=== PATIENT | female | born 2000 | race African-American/Black ===

== ENCOUNTER 2019-11-13 06:44 | Inpatient (IN) ==
[2019-11-13] MEDS ORDERED: ONDANSETRON 4 MG/2 ML VIAL IV PRN (07:34)
[2019-11-13] MEDS ORDERED: BUTORPHANOL 2 MG/ML VIAL IV PRN (07:34)
[2019-11-13] MEDS ORDERED: MEPERIDINE 50 MG/1 ML VIAL IV PRN (07:34)
[2019-11-13 07:56] LABS: Basophils % 0.3 % (0.0-0.8); Eosinophils # 0.1 10*3/uL (0.0-0.87); Eosinophils % 0.9 % (0.00-10.9); Hemoglobin 13.2 GM/DL (12.0-16.0); Immature Granulocytes % 0.9 %; Immature Granulocytes Absolute 0.07 #; Lymphocytes # 2.2 10*3/uL (1.4-4.0); Lymphocytes % 28.7 % (21.3-54.2); Mean Corpuscular Volume 86.8 FL (87-102); Mean Platelet Volume 12.6 FL (9.6-12.0); Monocytes % 11.4 % (1.7-12.7); Neutrophils % 57.8 % (38.7-73.9); Platelet Count 148 T/CUMM (130-400); Red Blood Count 4.61 MC/CUMM (3.8-5.5); Red Cell Distribution Width 14.6 % (9.3-17.3); White Blood Count 7.6 T/CUMM (4-12)
[2019-11-13] MEDS: LACTATED RINGERS 1,000 ML IV SCH ×2 (08:04→09:38)
[2019-11-13] MEDS: OXYTOCIN/LR 20 UNIT/1,000 ML BAG IV SCH ×2 (08:05→14:17)
[2019-11-13 08:17] LABS: Alanine Aminotransferase 14 U/L (13-56); Albumin 3.1 G/DL (3.4-5.0); Alkaline Phosphatase 204 U/L (45-117); Aspartate Amino Transferase 18 U/L (0-37); Bilirubin,Total < 0.39 MG/DL (0.2-1.0); Blood Urea Nitrogen 8 MG/DL (7-18); Calcium 10.2 MG/DL (8.5-10.1); Estimated Glom Filtration Rate 189 ML/MIN; Glucose 88 MG/DL (74-106); Osmolality,Calculated 264.2 MOS/KG (273-304); Total Protein 7.7 G/DL (6.4-8.3)
[2019-11-13] MEDS ORDERED: NALOXONE 0.4 MG/ML VIAL IV PRN (08:55)
[2019-11-13] MEDS ORDERED: CITRIC ACID/SODIUM CITRATE 30 ML UDCUP PO ONE (08:55)
[2019-11-13] MEDS ORDERED: ONDANSETRON 4 MG/2 ML VIAL IV ONE (08:55)
[2019-11-13] MEDS ORDERED: diphenhydrAMINE 50 MG/1 ML VIAL IV PRN ×2 (08:55)
[2019-11-13] MEDS ORDERED: LACTATED RINGERS 1,000 ML IV ONE (08:55)
[2019-11-13] MEDS ORDERED: hydrOXYzine HCL 25 MG/1 ML VIAL IM PRN (08:55)
[2019-11-13] MEDS ORDERED: FAMOTIDINE 20 MG/2 ML VIAL IV ONE (08:55)
[2019-11-13] MEDS ORDERED: ePHEDrine 50 MG/ML AMP IV PRN (08:55)
[2019-11-13] MEDS ORDERED: PROMETHAZINE 25 MG/1 ML VIAL IM ONE (08:55)
[2019-11-13] MEDS ORDERED: fentaNYL 2 MCG/ROPIV 0.2% EPID 100 ML EPIDURAL SCH (09:00)
[2019-11-13] MEDS ORDERED: fentaNYL 100 MCG/2 ML VIAL ONE (10:56)
[2019-11-13] MEDS ORDERED: ROPIVACAINE 0.5% 30 ML VIAL ONE (10:56)
[2019-11-13 11:25] LABS: Apearance,Urine CLEAR (Clear); Bilirubin,Urine Negative (Negative); Blood, Urine Negative (Negative); Glucose,Urine (UA) Negative (Negative); Ketones,Urine 5 mg/dL (Negative); Mucus,Urine Occasional /LPF (Occasional); Nitrite,Urine Negative (Negative); Protein,Urine Negative; RBC,Urine <1 /HPF (0-4); Urine Color Yellow (Yellow); Urine Specific Gravity 1.012 (1.001-1.035); Urine Urobilinogen < 2.0 EU/DL (0.2-1.0)
[2019-11-13] MEDS ORDERED: TRANEXAMIC ACID 1,000 MG/10 ML VIAL ONE (12:13)
[2019-11-13] MEDS ORDERED: OXYTOCIN/LR 20 UNIT/1,000 ML BAG IV ONE ×2 (12:13→14:40)
[2019-11-13] MEDS ORDERED: miSOPROStoL 200 MCG TABLET ONE (12:13)
[2019-11-13] MEDS ORDERED: METHYLERGONOVINE 0.2 MG/1 ML AMP ONE (12:13)
[2019-11-13] MEDS ORDERED: CARBOPROST TROMETHAMINE 250 MCG/ML AMP IM ONE (12:14)
[2019-11-13] MEDS ORDERED: oxyCODONE/ACETAMINOPHEN 5-325 MG TABLET PO PRN (14:40)
[2019-11-13] MEDS ORDERED: BISACODYL 10 MG SUPP RECTAL PRN (14:40)
[2019-11-13] MEDS ORDERED: HYDROCORTISONE 2.5% RECTAL CREAM 30 GM TUBE TOP PRN (14:40)
[2019-11-13] MEDS ORDERED: BENZOCAINE 20%/MENTHOL 0.5% SPRAY 56 GM CAN TOP PRN (14:40)
[2019-11-13] MEDS ORDERED: MEASLES/MUMPS/RUBELLA VACCINE 0.5 ML VIAL SUBCUT ONE (14:40)
[2019-11-13] MEDS ORDERED: RHO(D) IMMUNE GLOBULIN 300 MCG SYRINGE IM ONE (14:40)
[2019-11-13] MEDS ORDERED: ACETAMINOPHEN 325 MG TABLET PO PRN (14:40)
[2019-11-13] MEDS ORDERED: WITCH HAZEL PADS 100/JAR TOP PRN (14:40)
[2019-11-13] MEDS ORDERED: LANOLIN 50% CREAM 0.3 OZ TUBE TOP PRN (14:40)
[2019-11-13] MEDS ORDERED: DIPH/TET/ACEL PERT BOOSTER VACCINE 0.5 ML VIAL IM ONE (14:40)
[2019-11-13] MEDS: IBUPROFEN 800 MG TABLET PO PRN (16:07)
[2019-11-13] MEDS: DOCUSATE SODIUM 100 MG CAPSULE PO SCH (20:50)
[2019-11-14 04:54] LABS: Basophils % 0.4 % (0.0-0.8); Eosinophils # 0.1 10*3/uL (0.0-0.87); Eosinophils % 0.5 % (0.00-10.9); Hematocrit 35.4 VOL% (35.7-47.0); Immature Granulocytes % 0.7 %; Immature Granulocytes Absolute 0.07 #; Lymphocytes # 2.6 10*3/uL (1.4-4.0); Lymphocytes % 26.6 % (21.3-54.2); Mean Corpuscular HGB Conc 31.6 GM/DL (32-36); Mean Corpuscular Volume 87.4 FL (87-102); Mean Platelet Volume 12.2 FL (9.6-12.0); Monocytes % 11.1 % (1.7-12.7); Neutrophils % 60.7 % (38.7-73.9); Platelet Count 119 T/CUMM (130-400); Red Blood Count 4.05 MC/CUMM (3.8-5.5); Red Cell Distribution Width 14.4 % (9.3-17.3)
[2019-11-14 05:06] LABS: Hemoglobin 11.2 GM/DL (12.0-16.0); White Blood Count 9.9 T/CUMM (4-12)
[2019-11-14] MEDS: IBUPROFEN 800 MG TABLET PO PRN ×3 (08:15→22:05)
[2019-11-14] MEDS: DOCUSATE SODIUM 100 MG CAPSULE PO SCH ×2 (10:15→21:31)
[2019-11-14] MEDS: oxyCODONE/ACETAMINOPHEN 5-325 MG TABLET PO PRN ×2 (16:32→22:05)
[2019-11-15 07:19] VITALS: BP 89/63
[2019-11-15] MEDS ORDERED: INFLUENZA VIRUS VACCINE 0.5 ML SYRINGE IM ONE ×2 (07:46→11:20)
[2019-11-15] MEDS: DOCUSATE SODIUM 100 MG CAPSULE PO SCH (13:21)
== END 2019-11-15 13:25 | disposition home or self-care (01) | DRG 560 ==
LOC: N.LDOUT 06:44 → N.LD 06:44 → N.OB 14:33
PROVIDERS: ADMIT Obstetrics & Gynecology; ATTEND Obstetrics & Gynecology